=== PATIENT | female | born 1980 | race Caucasian/White ===

== ENCOUNTER 2020-07-04 06:04 | Emergency (ER) | payer OTHER, SELFPAY ==
[2020-07-04] VITALS (7 sets, daily range): BP systolic 137–161; BP diastolic 81–94; PULSE 68–89; RESP 16–18; TEMP 36.6; O2SAT 96–98
--- NOTE | ~2020-07-04 | CT_ITS ---
EXAMINATION: CT abdomen pelvis w con INDICATION: Flank pain TECHNIQUE: Computed tomographic images of the abdomen and pelvis were obtained after the administrati on of 100 cc of Omnipaque 350 intravenous contrast. The dose-length product (DLP) was 1041.77 mGy-cm. Automated exposure control and iterative reconstruction technique were employed. COMPARISON: None available FINDINGS: Minimal dependent atelectasis is present in the lung bases. The heart size is normal. Bilat eral breast implants are noted. There is focal fatty infiltration of the liver adjacent to the ligame ntum teres. The spleen, pancreas, gallbladder, and adrenal glands are normal. There is a 5 mm stone i n the distal right ureter which causes moderate right hydroureteronephrosis. There is slightly decrea sed perfusion of the right kidney compared to the left. There is a 2 mm nonobstructing stone of the r ight kidney lower pole. There are four nonobstructing stones of the left kidney, the largest of which measures 5 mm in the lower pole. Cysts of the kidneys measure up to 10 mm on the right. No pathologi ivis enlarged abdominal or pelvic lymph nodes are identified. There is no free intraperitoneal gas o r evidence of bowel obstruction. The appendix is normal. An enhancing corpus luteum is noted in the l eft ovary. IMPRESSION: 1. 5 mm stone in the distal right ureter causing moderate right hydroureteronephrosis. Consider KUB f or treatment planning purposes. 2. Bilateral nephrolithiasis. Reviewed, dictated and finalized at location A. ING FLAGS DECORATOR IMPRESSION: 1. 5 mm stone in the distal right ureter causing moderate right hydroureteronep hrosis. Consider KUB for treatment planning purposes. 2. Bilateral nephrolithiasis.
--- NOTE | 2020-07-04 06:19 | ED.GENADULT ---
HPI - General Adult General Chief complaint: Abdominal Pain <Luca Herrera MD - Last Filed: 07/04/20 07:01> Stated complaint: R flank pain/ low abd pain <Luca Herrera MD - Last Filed: 07/04/20 07:01> Time Seen by Provider: 07/04/20 06:12 <Luca Herrera MD - Last Filed: 07/04/20 07:01> History of Present Illness HPI narrative: Patient a 40-year-old female who presents to emergency department with chief complaint of right flank pain and right lower quadrant pain. Patient states that for the last several days she has had pain in the right flank area states that its moved to the right lower quadrant area. The patient states she is had some nausea and vomiting denies fever or chills reports she is also had some diarrhea with this as well. Patient reports she has a past medical history significant for kidney stones but states this feels different from whenever she has had stones in the past. <Luca Herrera MD - Last Filed: 07/04/20 07:01> Related Data Home medications: Home Medications Medication Instructions Recorded Confirmed fluoxetine mg 07/04/20 levothyroxine 07/04/20 07/04/20 liothyronine mcg 07/04/20 metformin mg 07/04/20 nortriptyline 07/04/20 sumatriptan mg INTRANASAL 07/04/20 topiramate 07/04/20 <Luca Herrera MD - Last Filed: 07/04/20 07:01> Allergies/adverse reactions: Allergies Allergy/AdvReac Type Severity Reaction Status Date / Time No Known Allergies Allergy Unknown Uncoded 07/04/20 06:13 <Luca Herrera MD - Last Filed: 07/04/20 07:01> Review of Systems Review of Systems: Narrative: A 10 system review of systems was completed on the patient and is negative except for what is stated in the HPI. Nursing and ancillary documentation was reviewed. <Luca Herrera MD - Last Filed: 07/04/20 07:01> PMFSH Past Medical History Medical History: Medical History (Updated 07/04/20 @ 10:43 by Jett Meadows DO) Kidney stone <Luca Herrera MD - Last Filed: 07/04/20 07:01> Comments Past medical history significant for hypothyroidism migraines and kidney stones Social history the patient denies illicit drug use <Luca Herrera MD - Last Filed: 07/04/20 07:01> Exam Narrative: Exam Narrative: GENERAL: Well-appearing, well-nourished, and in no acute distress. HEAD: Normocephalic, atraumatic. EYES: PERRLA and EOMI. ENT: Nares clear, no rhinorrhea or epistaxis. Mucous membranes moist. NECK: Supple. CHEST: Clear to auscultation. No respiratory distress. HEART: Regular rate and rhythm. No murmur heard. Normal peripheral pulses. ABDOMEN: Soft, mild tenderness to palpation diffusely, nondistended, normal active bowel sounds. EXTREMITIES: Normal range of motion. No edema. SKIN: Warm, dry, no rash. NEURO: No focal deficits. Alert and oriented x3. PSYCH: Normal mood and affect. <Luca Herrera MD - Last Filed: 07/04/20 07:01> Course Course Emergency Course: His laboratory studies showed mildly elevated white blood cell count 14.5 CT scan of the abdomen pelvis is still pending at this time I will be signing out care to the day provider <Luca Herrera MD - Last Filed: 07/04/20 07:01> 7:00AM - assumed care from Dr. Herrera, pending CT scan 7:30AM - re-evaluatd pt, pain is 11/21 8:25AM - discussed case with Dr. Espinoza, urologist, can follow up in office if pain under control 10:30AM -reevaluated patient multiple times throughout emergency department stay. Pain and nausea have improved. Will discharge patient with antiemetics and pain medications. Counseled patient to call urologist office on Monday. Return to emergency department if symptoms persist, worsen, or other concerns. <Jett Meadows DO - Last Filed: 07/04/20 17:58> Vital Signs Vital signs: Vital Signs Temperature 36.6 C 07/04/20 06:09 Pulse
[2020-07-04 06:37] LABS: Basophils Absolute Auto 0.1 K/mm3 (0.0-0.1); Basophils Percent Auto 0.7 % (0.2-1.2); Eosinophils Absolute Auto 0.3 K/mm3 (0-0.3); Eosinophils Percent Auto 1.7 % (0-4.4); Hematocrit 41.7 % (37.0-47.0); Hemoglobin 13.7 g/dL (12.0-15.0); Immature Granulocyte Absolute 0.05 K/mm3 (0.00-0.031); Immature Granulocyte Percent A 0.3 % (0-0.5); Lymphocytes Absolute Auto 2.51 K/mm3 (0.9-3.2); Lymphocytes Percent Auto 17.3 % (18.3-44.2); Mean Corpuscular HGB Conc 32.9 g/dl (32-36); Mean Corpuscular Hemoglobin 27.5 pg (26-34); Mean Corpuscular Volume 83.6 fl (80-100); Mean Platelet Volume 9.2 fl (7.4-10.4); Monocytes Absolute Auto 0.8 K/mm3 (0.1-0.6); Monocytes Percent Auto 5.3 % (2.6-8.5); Neutrophils Absolute Auto 10.8 K/mm3 (1.3-6.7); Neutrophils Percent Auto 74.7 % (45.5-73.1); Platelet Count Result 535 k/mm3 (150-375); Red Blood Count 4.99 M/mm3 (4.2-5.4); Red Cell Distribution Width 13.8 % (11.5-14.5); White Blood Count 14.5 K/mm3 (4.5-10.0)
[2020-07-04] MEDS: SODIUM CHLORIDE 0.9% IV 1,000 ML 999 ML IV CONT (06:41)
[2020-07-04] MEDS: ONDANSETRON INJ 4 MG/2 ML VIAL IV PUSH (06:41)
[2020-07-04] MEDS: MORPHINE SULFATE (*CRX) 4 MG/ML INJ IV PUSH (06:41)
[2020-07-04 06:48] LABS: Alanine Aminotransferase 21 U/L (4-35); Albumin Level 4.2 g/dL (3.5-5.1); Alkaline Phosphatase 71 U/L (38-126); Anion Gap 9 mmol/L (8-16); Aspartate Amino Transferase 21 U/L (14-36); Bilirubin,Total 0.5 mg/dL (0.2-1.3); Blood Urea Nitrogen 9 mg/dL (7-17); Calcium 9.4 mg/dL (8.4-10.2); Carbon Dioxide 23 mmol/L (22-30); Chloride 107 mmol/L (98-107); Estimated CRCL calculation 66 ml/min; Estimated Glomerular Filt Rate > 60; Glucose 109 mg/dL (65-105); Lipase 163 U/L (23-300); Potassium 3.6 mmol/L (3.4-5.0); Sodium 139 mmol/L (137-145)
[2020-07-04 07:28] LABS: Add Urine Microscopic? YES; Appearance Urine Clear (Clear); Bacteria Urine Trace /hpf; Bilirubin Urine Negative (Negative); Blood Urine 2+ (Negative); Calcium Oxalate Crystals Urine Present /hpf; Color Urine Straw (Yellow); Glucose Urine UA Negative (Negative); Ketones Urine Negative (Negative); Leukocyte Esterase Ur Trace LEU/UL (Negative); Mucus Urine Few /lpf; Nitrate Urine Negative (Negative); Protein Urine Negative (Negative); RBC Urine 51-75 /hpf (0-2); Specific Grav Ur 1.013 (1.001-1.035); Squamous Epithelial Cell Urine Many /hpf (Few); Urobilinogen Urine Negative mg/dL (<2.0)
[2020-07-04] MEDS: KETOROLAC 30 MG/ML VIAL (*BKC) IV PUSH (07:49)
[2020-07-04] MEDS: HYDROmorphone HCL INJ (*CRX) 1 MG/ML SYR 0.5 MG IV PUSH (09:45)
== END 2020-07-04 10:54 | disposition home or self-care (01) ==
PROVIDERS: Emergency Medicine; Emergency Provider Emergency Medicine; PCP Nurse Practitioner Family
DX: N13.2 Hydronephrosis with renal and ureteral calculous obstruction (principal); Z87.442 Personal history of urinary calculi; E03.9 Hypothyroidism, unspecified
CPT/HCPCS: 36415; 74177; 80053; 81001; 81025; 83605; 83690; 85025; 87086; 96361; 96365; 96375; 99284; J0696; J1170; J1885; J2270; J2405; J7030; Q9967

== ENCOUNTER 2020-07-21 18:04 | Emergency (ER) | payer OTHER, SELFPAY ==
--- NOTE | ~2020-07-21 | CT_ITS ---
EXAMINATION: CT abdomen pelvis wo con DATE: 07/21/2020 22:58 INDICATION: Flank pain after lithotripsy TECHNIQUE: Computed tomography (CT) of the abdomen and pelvis was performed without intravenous contr ast. The dose-length product was 794.68 mGy-cm. Automated exposure control and iterative reconstructi on technique were employed. COMPARISON: CT dated 07/04/2020. FINDINGS: Heart size is normal. No significant pleural or pericardial effusion. No significant vascul ar abnormality. No lymphadenopathy. Small fat-containing umbilical hernia. The liver, spleen, pancreas, adrenal glands are unremarkable. There are nonobstructing bilateral braulio l stones. There is a left internal ureteral stent in expected position. There is mild left periureter al edema, nonspecific. No significant hydronephrosis. There is mild right hydronephrosis with periure teral edema. No obstructing stone or mass is identified. No acute osseous abnormality. IMPRESSION: 1. Nonobstructing bilateral nephrolithiasis. Mild right hydronephrosis although the previously identi fied distal right ureteral stone is not visualized on the current study. 2: Bilateral periureteral edema. Cannot exclude ascending urinary tract infection. Reviewed, dictated and finalized at location A. CAR MECHANIC IMPRESSION: 1. Nonobstructing bilateral nephrolithiasis. Mild right hydronephrosis although the previously identified distal right ureteral stone is not visualized on the current study. 2: Bilateral periureteral edema. Cannot exclude ascending urinary tract infecti on.
[2020-07-21 18:06] VITALS: BP 145/85; PULSE 93; RESP 20; TEMP 36.3; O2SAT 98
--- NOTE | 2020-07-21 22:16 | ED.BACK ---
HPI - Back Pain/Injury General Chief Complaint: Back Pain/Injury Stated Complaint: post op complications Time Seen by Provider: 07/21/20 22:03 History of Present Illness HPI Narrative: Severe right flank pain and hematuria following lithotripsy and ureteral stenting performed at [facility] immediately before coming here. This was associated with multiple episodes of vomiting. She says that she was having all of these before being discharged from the hospital, but they told her it was fine and discharged her. She came straight here. Related Data Home Medications Medication Instructions Recorded Confirmed fluoxetine mg 07/04/20 levothyroxine 07/04/20 07/04/20 liothyronine mcg 07/04/20 metformin mg 07/04/20 nortriptyline 07/04/20 sumatriptan mg INTRANASAL 07/04/20 topiramate 07/04/20 Allergies Allergy/AdvReac Type Severity Reaction Status Date / Time No Known Allergies Allergy Unknown Uncoded 07/04/20 06:13 Review of Systems Review of Systems: All systems reviewed & are unremarkable except as noted in HPI and below Constitutional: Constitutional: Denies chills and Denies fever(s) Cardiovascular: Cardiovascular: Denies chest pain Respiratory: Respiratory: Denies dyspnea Gastrointestinal: Gastrointestinal: Reports abdominal pain, Denies constipation, Denies diarrhea, Reports nausea and Reports vomiting Genitourinary: Genitourinary: Reports hematuria and Reports flank pain Neurologic: Denies weakness [facility] Past Medical History Medical History (Updated 07/23/20 @ 00:00 by Katrin Damarlena) Kidney stone Surgical History Surgical History (Updated 07/22/20 @ 23:57 by Dirk Rodgers MD) History of lithotripsy Social History Social History (Updated 07/22/20 @ 23:57 by Dirk Rodgers MD) Smoking status: Never smoker Substance use: never Exam Const: General: alert Orientation/consciousness: patient oriented x3 Other: Mild distress. Tearful. HENMT: Head: normal to inspection Neck: Neck: normal visual inspection Resp: Effort & Inspection: normal respiratory effort Auscultation: clear to auscultation bilaterally Cardio: Rate: regular rate Rhythm: regular rhythm GI: Inspection: non-distended GI Palp: Yes Soft to palpation and Yes Tenderness to palpation present (GI) (RLQ) : General: Yes CVA tenderness on the right Skin: General skin exam: normal color Neuro: General: patient oriented x3, moves all extremities, no focal motor deficits and CN's II-XI intact bilaterally Speech: normal speech Extrem: General: normal to inspection Course Vital Signs Vital signs: Vital Signs Temperature 36.3 C L 07/21/20 18:06 Pulse Rate 93 07/21/20 18:06 Respiratory Rate 20 07/21/20 18:06 Blood Pressure 145/85 H 07/21/20 18:06 Pulse Oximetry 98 07/21/20 18:06 Temperature 36.3 C L 07/21/20 18:06 Pulse Rate 79 07/22/20 02:38 Respiratory Rate 15 07/22/20 02:38 Blood Pressure 116/86 07/22/20 02:38 Pulse Oximetry 97 07/22/20 02:38 MDM - Back Pain/Injury MDM Narrative Medical decision making narrative: Case discussed with her urologist. He would like me to start Ditropan. No antibiotics. She can follow-up with him for stent removal if the pain does not improve. Medical Records Attestation: I reviewed the patient's medical records. Lab Data Attestation: I reviewed the patient's lab results. Result diagrams: 07/21/20 22:35 07/21/20 22:35 Labs: Lab Results 07/21/20 07/21/20 07/21/20 Range/Units 22:35 22:35 22:48 WBC 15.2 H (4.5-10.0) K/mm3 RBC 4.87 (4.2-5.4) M/mm3 Hgb 13.4 (12.0-15.0) g/dL Hct 41.5 (37.0-47.0) % MCV 85.2 (80-100) fl MCH 27.5 (26-34) pg MCHC 32.3 (32-36) g/dl RDW 13.7 (11.5-14.5) % Plt Count 475 H (150-375) k/mm3 MPV 9.5 (7.4-10.4) fl Immature Gran % (Auto) 0.4 (0-0.5) % Neut % (Auto) 90.9 H (45.5-73.1) % Lymph % (Auto) 5
[2020-07-21 22:25] VITALS: BP 136/81; PULSE 108; RESP 17; O2SAT 98
[2020-07-21] MEDS: MORPHINE SULFATE (*CRX) 4 MG/ML INJ IV PUSH (22:33)
[2020-07-21] MEDS: ONDANSETRON INJ 4 MG/2 ML VIAL IV PUSH (22:33)
[2020-07-21 22:56] LABS: Basophils Percent Auto 0.2 % (0.2-1.2); Hematocrit 41.5 % (37.0-47.0); Hemoglobin 13.4 g/dL (12.0-15.0); Immature Granulocyte Absolute 0.06 K/mm3 (0.00-0.031); Immature Granulocyte Percent A 0.4 % (0-0.5); Lymphocytes Percent Auto 5.9 % (18.3-44.2); Mean Corpuscular HGB Conc 32.3 g/dl (32-36); Mean Corpuscular Hemoglobin 27.5 pg (26-34); Mean Corpuscular Volume 85.2 fl (80-100); Mean Platelet Volume 9.5 fl (7.4-10.4); Monocytes Absolute Auto 0.4 K/mm3 (0.1-0.6); Monocytes Percent Auto 2.6 % (2.6-8.5); Neutrophils Absolute Auto 13.8 K/mm3 (1.3-6.7); Neutrophils Percent Auto 90.9 % (45.5-73.1); Platelet Count Result 475 k/mm3 (150-375); Red Blood Count 4.87 M/mm3 (4.2-5.4); Red Cell Distribution Width 13.7 % (11.5-14.5); White Blood Count 15.2 K/mm3 (4.5-10.0)
[2020-07-21 23:04] LABS: Add Urine Microscopic? YES; Appearance Urine Cloudy (Clear); Bacteria Urine Trace /hpf; Bilirubin Urine Negative (Negative); Blood Urine 3+ (Negative); Color Urine Red (Yellow); Glucose Urine UA Negative (Negative); Ketones Urine 1+ mg/dL (Negative); Leukocyte Esterase Ur 2+ LEU/UL (Negative); Mucus Urine Few /lpf; Nitrate Urine Negative (Negative); Protein Urine 3+ mg/dL (Negative); RBC Urine >75 /hpf (0-2); Specific Grav Ur 1.016 (1.001-1.035); Squamous Epithelial Cell Urine Many /hpf (Few); Urobilinogen Urine Negative mg/dL (<2.0); WBC Urine >75 /hpf
[2020-07-21 23:10] LABS: Alanine Aminotransferase 16 U/L (4-35); Albumin Level 4.3 g/dL (3.5-5.1); Alkaline Phosphatase 74 U/L (38-126); Anion Gap 8 mmol/L (8-16); Aspartate Amino Transferase 21 U/L (14-36); Bilirubin,Total 0.5 mg/dL (0.2-1.3); Blood Urea Nitrogen 11 mg/dL (7-17); Calcium 8.9 mg/dL (8.4-10.2); Carbon Dioxide 23 mmol/L (22-30); Chloride 110 mmol/L (98-107); Estimated CRCL calculation 68 ml/min; Estimated Glomerular Filt Rate > 60; Glucose 105 mg/dL (65-105); Potassium 4.2 mmol/L (3.4-5.0); Sodium 141 mmol/L (137-145)
[2020-07-21 23:20] VITALS: BP 141/85; PULSE 84; RESP 15; O2SAT 100
[2020-07-22] MEDS: OXYBUTYNIN CHLORIDE 5 MG TABLET PO (00:21)
[2020-07-22] MEDS: HYDROcodone/acetaminophen (*CRX) 5-325 MG TABLET 1 TAB PO (00:22)
[2020-07-22 01:30] VITALS: BP 145/69; PULSE 65; RESP 14; O2SAT 97
[2020-07-22] MEDS: MORPHINE SULFATE (*CRX) 4 MG/ML INJ IV PUSH (02:04)
[2020-07-22] MEDS: PHENAZOPYRIDINE HCL 100 MG TABLET 200 MG PO (02:05)
[2020-07-22] MEDS: NITROFURANTOIN MONOHYD MACROCR 100 MG CAP PO (02:05)
[2020-07-22 02:38] VITALS: BP 116/86; PULSE 79; RESP 15; O2SAT 97
== END 2020-07-22 02:40 | disposition home or self-care (01) ==
PROVIDERS: Emergency Provider Emergency Medicine; PCP Nurse Practitioner Family
DX: R10.9 Unspecified abdominal pain (principal); Z96.0 Presence of urogenital implants; Z87.442 Personal history of urinary calculi
CPT/HCPCS: 36415; 74176; 80053; 81001; 81025; 85025; 87086; 87088; 96374; 96375; 99284; A9270; J2270; J2405